=== PATIENT | female | born 1995 | race Caucasian/White ===

== ENCOUNTER → 2023-12-14 13:45 | Outpatient (REF) | payer OTHER, SELFPAY | LOC: HWRAD 13:45 | PROVIDERS: ATTENDING PHYSICIAN Obstetrics & Gynecology Gynecology; FAMILY PHYSICIAN Family Medicine | DX: Q50.4 Embryonic cyst of fallopian tube (principal) | CPT/HCPCS: 76830; 76856 ==

== ENCOUNTER → 2024-02-08 18:24 | Outpatient (REF) | payer BC, SELFPAY | LOC: MRI 3T 18:24 | PROVIDERS: ATTENDING PHYSICIAN Obstetrics & Gynecology Gynecology; FAMILY PHYSICIAN Family Medicine | DX: R19.09 Other intra-abdominal and pelvic swelling, mass and lump (principal) | CPT/HCPCS: 72197; A9575 ==